=== PATIENT | male | born 1950 | race Asian ===

== ENCOUNTER 2024-09-04 10:26 | Outpatient (REF) | payer MEDICARE, BC, SELFPAY ==
[2024-09-04 11:22] LABS: Albumin* 4.7 g/dL (3.3-5.0); Chloride* 102 mmol/L (96-114)
[2024-09-04 11:23] LABS: Potassium* 3.4 mmol/L (3.6-5.1); Sodium* 140 mmol/L (135-149)
[2024-09-04 11:25] LABS: Anion Gap 8 mEq/L (7-15); Aspartate Amino Transferase* 67 U/L (12-35); Bilirubin Direct* 0.2 mg/dL (0.0-0.5); Bilirubin Total* 0.7 mg/dL (0.1-1.5); Carbon Dioxide* 30 mmol/L (20-32); Cholesterol* 167 mg/dL (90-199); Creatinine* 1.1 mg/dL (0.5-1.5); Estimated Glomerular Filt Rate 71 ml/min; Total Protein* 7.6 g/dL (6.0-8.3)
[2024-09-04 11:26] LABS: Alanine Aminotransferase* 111 U/L (4-50); Alkaline Phosphatase* 43 U/L (40-150); Blood Urea Nitrogen* 28 mg/dL (7-30); Calcium* 9.2 mg/dL (8.4-10.6); Creatine Kinase* 263 U/L (54-186); Glucose* 120 mg/dL (60-115); HDL Cholesterol* 40 mg/dL (>=40); LDL Cholesterol Calculated 71 mg/dL (<100); Triglycerides* 282 mg/dL (40-149); Uric Acid* 8.2 mg/dL (2.2-8.4)
[2024-09-04 11:33] LABS: C Reactive Protein* < 0.5 mg/dL (0.5-1.0)
[2024-09-04 11:56] LABS: Free T4 Free Thyroxine* 0.54 ng/dL (0.70-1.85); PSA Screen* 3.04 ng/mL (0.10-4.00)
[2024-09-04 12:54] LABS: Vitamin B12* 562 pg/mL (243-894)
[2024-09-04 13:07] LABS: Hemoglobin A1C* 4.9 % (0-5.6)
== END 2024-09-04 10:27 | disposition home or self-care (01) ==
LOC: NPINS 10:26
PROVIDERS: PCP Surgery; Visit Provider Surgery
DX: E78.2 Mixed hyperlipidemia (principal); I10 Essential (primary) hypertension; R73.03 Prediabetes; E55.9 Vitamin D deficiency, unspecified; R73.09 Other abnormal glucose; Z12.5 Encounter for screening for malignant neoplasm of prostate
CPT/HCPCS: 80048; 80061; 80076; 82172; 82550; 82607; 83036; 84439; 84443; 84550; 86140; G0103

== ENCOUNTER 2024-11-10 09:11 | Outpatient (CLI) | payer MEDICARE, BC, SELFPAY ==
[2024-11-10 09:49] LABS: C Reactive Protein* 3.6 mg/dL (0.5-1.0)
== END 2024-11-10 09:12 | disposition home or self-care (01) ==
PROVIDERS: PCP Surgery; Visit Provider Student in an Organized Health Care Education/Training Program
DX: K57.92 Diverticulitis of intestine, part unspecified, without perforation or abscess without bleeding (principal)
CPT/HCPCS: 36415; 86140

== ENCOUNTER 2024-11-21 07:05 | Outpatient (CLI) | payer MEDICARE, BC, SELFPAY ==
--- NOTE | 2024-11-21 07:15 | CRLHL7_ITS ---
For Patients: As a result of the Century Cures Act, medical imaging exams and procedure reports are released immediately into your electronic medical record. You may view this report before your referring provider. If you have questions, please contact your health care provider. INDICATION: elevated liver enzymes COMPARISON: 12/27/2018 TECHNIQUE: Real time cao scale imaging and color Doppler analysis was performed of the right upper quadrant. FINDINGS: The liver measures 15.0 cm. Increased echotexture of the liver parenchyma noted with focal fatty sparing adjacent to the gallbladder. There is a normal appearance of the hepatic IVC and proximal abdominal aorta. There is no evidence of ascites. The gallbladder is of normal size and there is no evidence of intraluminal stones or sludge. The gallbladder wall measures 1 mm in thickness. The common bile duct is of normal size and measures 4 mm in diameter at the level of the robert hepatis. The visualized pancreas appears normal. There is no evidence of a stone or hydronephrosis within the right kidney. The right kidney measures 11.5 cm in length. IMPRESSION: Hepatic steatosis. Remainder unremarkable. Dictated by Erasmo Tsai MD @ 11/21/2024 10:37:56 AM (Electronically Signed)
== END 2024-11-21 07:06 | disposition home or self-care (01) ==
LOC: US 07:05
PROVIDERS: PCP Surgery; Visit Provider Surgery
DX: R74.8 Abnormal levels of other serum enzymes (principal); K76.0 Fatty (change of) liver, not elsewhere classified
CPT/HCPCS: 76705

== ENCOUNTER 2025-05-04 08:13 | Outpatient (CLI) | payer MEDICARE, BC, SELFPAY ==
[2025-05-04 08:32] LABS: Hematocrit* 44.1 % (37.0-53.0); Hemoglobin* 15.3 gm/dL (13.5-17.5); Immature Granulocytes Abs Auto 0.02 K/uL (0.00-0.30); Immature Granulocytes Pct Auto 0.4 %; Lymphocytes Absolute Auto 1.62 K/uL (0.90-2.90); Mean Corpuscular HGB Conc 35 gm/dL (32-36); Mean Corpuscular Hemoglobin 31 pg (26-34); Mean Corpuscular Volume 90 fL (80-100); RDW Coefficient of Variation % 12.2 % (11.5-15.5); Red Blood Count* 4.90 m/uL (4.30-5.90); White Blood Count* 5.15 K/uL (4.50-11.00)
[2025-05-04 08:42] LABS: Slide Review Reflex No
[2025-05-04 10:19] LABS: Erythrocyte SedimentationRate* 5 mm/hr (2-15)
== END 2025-05-04 08:14 | disposition home or self-care (01) ==
PROVIDERS: PCP Surgery; Visit Provider Surgery
DX: M54.2 Cervicalgia; M25.519 Pain in unspecified shoulder
CPT/HCPCS: 36415; 85025; 85651

== ENCOUNTER 2025-05-28 18:04 | Outpatient (CLI) | payer MEDICARE, BC, SELFPAY ==
--- NOTE | 2025-05-28 18:15 | CRLHL7_ITS ---
For Patients: As a result of the Century Cures Act, medical imaging exams and procedure reports are released immediately into your electronic medical record. You may view this report before your referring provider. If you have questions, please contact your health care provider. INDICATION : Cervical radiculopathy. TECHNIQUE : Cervical spine MRI without contrast. COMPARISON: COMPARISONNone. FINDINGS: Normal cervical lordotic curve. No recent compression fracture or marrow replacing process. Posterior fossa structures are normal. Cervical cord signal is normal. No extraspinal soft tissue abnormalities. Discs/Endplates: Moderate disc height loss disc desiccation and endplate remodeling at C5-6 C6-7. Mild disc degeneration elsewhere. Happened reactive marrow edema involving the left C6-7 endplates. Findings at individual levels as follows: Craniocervical junction: Alignment is maintained. C2-C3: No spinal canal or neural foraminal stenosis. C3-C4: Trace anterolisthesis. Shallow disc osteophyte complex. Bilateral uncovertebral and facet arthrosis with mild bilateral foraminal stenosis. No spinal canal stenosis. C4-C5: Trace retrolisthesis. Shallow central protrusion which flattens the thecal sac. Ligamentum flavum buckling. Mild spinal canal stenosis. Bilateral uncovertebral and facet arthrosis with mild bilateral foraminal stenosis. C5-C6: Eccentric left-sided disc osteophyte complex which flattens the thecal sac. Mild spinal canal stenosis. Left uncovertebral and facet arthrosis with moderately advanced left neural foraminal stenosis and compression of the exiting left C6 nerve root. Right uncovertebral and facet arthrosis with mild right neural foraminal stenosis. C6-C7: A broad-based disc osteophyte complex flattens the thecal sac. Ligamentum flavum buckling. Mild spinal canal stenosis. Bilateral uncovertebral and facet arthrosis with moderately advanced bilateral neural foraminal stenosis and compression of the exiting C7 nerve roots. C7-T1: Trace anterolisthesis. Shallow disc osteophyte complex. Mild spinal canal stenosis. Bilateral uncovertebral and facet arthrosis with mild right and moderate left neural foraminal stenosis. Mild compression of the exiting left C8 nerve root. Imaged upper thoracic levels: No spinal canal or neural foraminal stenosis. IMPRESSION: 1. No acute fracture or marrow replacing process. 2. At C5-6, moderately advanced left neural foraminal stenosis with compression of the exiting left C6 nerve root. 3. At C6-7, moderately advanced bilateral neural foraminal stenosis with compression of the exiting C7 nerve roots. 4. At C7-T1, moderate left neural foraminal stenosis with mild compression of the exiting left C8 nerve root. 5. No high-grade spinal canal stenosis or extrinsic cord deformity at any cervical level. Dictated by Vaibhav Rogers MD @ 05/29/2025 2:51:49 PM (Electronically Signed)
== END 2025-05-28 18:05 | disposition home or self-care (01) ==
LOC: MRI 18:05
PROVIDERS: PCP Surgery; Visit Provider Surgery
DX: M54.12 Radiculopathy, cervical region (principal); M48.02 Spinal stenosis, cervical region; M48.03 Spinal stenosis, cervicothoracic region
CPT/HCPCS: 72141